=== PATIENT | male | born 1960 | race Caucasian/White ===

== ENCOUNTER → 2018-10-19 10:13 | Outpatient (CLI) | payer OTHER, SELFPAY ==
--- NOTE | 2018-10-19 10:22 | RAD_ITS ---
STUDY: X-RAY - LUMBAR SPINE REASON FOR EXAM: Male, 57 years old. Hip pain, left more than right TECHNIQUE: Five view(s) of the lumbar spine were obtained. COMPARISON: None FINDINGS: Normal lumbar lordosis. Trace levoscoliosis. There is minimal retrolisthesis of L5 on S1. There are small osteophytes scattered in the lumbar spine. Vertebral body heights are maintained in the lumbar spine. There is mild degenerative wedging in the lower thoracic spine and L1. There is mild disc space narrowing at L5-S1. There is atherosclerotic calcification of the abdominal aorta without a demonstrated aneurysm. RAD/L/S Spine Min 4 Views IMPRESSION: Mild degenerative disc changes at L5-S1. There is trace levoscoliosis. Electronically Signed: Violet Fernandez MD at 0:08 EST Tel Direct: [phone], Service support ,
--- NOTE | 2018-10-19 10:23 | RAD_ITS ---
STUDY: X-RAY - PELVIS AND BILATERAL HIPS REASON FOR EXAM: Male, 57 years old. Hip pain, left greater than right TECHNIQUE: Six views of the pelvis and hips were obtained. COMPARISON: None. FINDINGS: There is a non-specific bowel gas pattern. The soft tissues are unremarkable. The visualized iliac wings, sacroiliac joints and sacrum are unremarkable. No abnormalities are seen in the visualized superior and inferior pubic rami. Normal appearing pubic symphysis. The visualized ischial tuberosities are unremarkable. There is slight flattening of the femoral head. The right acetabulum is slightly shallow. The right hip joint is normal in appearance. The proximal left femur shows no significant abnormalities. The left acetabulum shows no significant abnormalities. The left hip joint is normal in appearance. RAD/Hips B/L min 2 views w/ Pelvis IMPRESSION: There are no acute abnormalities. No significant abnormalities are seen radiographically in the left hip. 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 Electronically Signed: Violet Fernandez MD at 0:05 EST Tel Direct: [phone], Service support ,
--- OUTSIDE RECORDS SUMMARY | 2019-01-20 23:16 | XMS RPT_ITS | Summary of Care ---
:1960 Author Organization [facility] Address [address] [place] [address] Phone Care Team Providers Name Role Phone Unavailable Primary Care Provider Unavailable Encounter Details Date Type Department Care Team Description 06/10/2017 Hospital Encounter [facility] FerreiraKenna salas, [address] [facility] [place] [address] 0[address] [facility] [phone] Social History Tobacco Use Types Packs/Day Years Used Date Never Assessed Sex Assigned at Date Recorded Not on file as of this encounter Plan of Treatment Not on fileas of this encounter Results Creatinine with eGFR (06/10/2017 9:49 AM) Component Value Ref Range Creatinine 0.9 0.6 - 1.2 mg/dL Comment: Testing performed at [email or web address], [address] [place] [id number]. eGFR >=60 ml/min/1.73sq.m Comment: eGFR is an estimated Glomerular Filtration Rate based on the value of the patient's serum creatinine. In outpatients, eGFR should be used as a helpful tool in screening for CKD. In inpatients or patients with acute renal failure, eGFR represents the GFR at the moment of the draw and should be used with caution. eGFR >=60 ml/min/1.73sq.m Specimen Performing Laboratory Blood [facility] [address] [place] [address] in this encounter
--- OUTSIDE RECORDS SUMMARY | 2019-01-20 23:17 | XMS RPT_ITS | Summary of Care ---
:1960 Author Organization [facility] Address [address] [id number] Phone Care Team Providers Name Role Phone Kenna Ferreira PA-C Primary Care Provider Maurisio Bernal MD Unavailable Reason for Referral Evaluate and Treat (Routine) Status Reason Specialty Diagnoses / Referred By Referred To Procedures Contact Contact Pending Review Orthopedic Diagnoses Bilateral hip pain Kenna Ferreira, Nate Stevens, DRAGAN Zuniga, [address] Phone: [employer] [phone] [place], [place] Fax: [phone] Reason for Visit Evaluate and Treat (Routine) Status Reason Specialty Diagnoses / Referred By Referred To Procedures Contact Contact Pending Review Orthopedic Diagnoses Bilateral hip pain Kenna Ferreira, Nate Stevens, DRAGAN Zuniga, [address] Phone: [employer] [phone] [place], [place] Fax: [phone] Encounter Details Date Type Department Care Team Description 10/20/2017 Office Visit [facility] Aiden Shelley Trochanteric bursitis of both hips (Primary Dx); [facility]opedic [facility] MD Efrain Bilateral hip pain [facility] [address] [place] [address] [place] [address] [phone] Allergies No Known Allergiesas of this encounter Medications Prescription Sig. Disp. Refills Start Date End Date Status metFORMIN (GLUCOPHAGE-XR) 08/21/2017 Active 500 MG 24 hr tablet lisinopril 07/28/2017 Active (PRINIVIL,ZESTRIL) 40 MG tablet NIASPAN EXTENDED-RELEASE 09/23/2017 Active 1,000 mg CR tablet fish oil-omega-3 fatty Take 2 g by mouth Active acids 300-1,000 mg capsule daily. predniSONE (DELTASONE) 20 10/17/2017 Active MG tablet Hospital, Clinic, or Other Ordered Dose Route Frequency Start Date End Date Status Facility Administered Medication triamcinolone acetonide 20 mg IAtc Once 10/20/2017 10/20/2017 Ended (KENALOG-40) injection 20 mg triamcinolone acetonide 20 mg IAtc Once 10/20/2017 10/20/2017 Ended (KENALOG-40) injection 20 mg as of this encounter Social History Tobacco Use Types Packs/Day Years Used Date Former Smoker 1 20 Smokeless Tobacco: Never Used Alcohol Use Drinks/Week oz/Week Comments Yes Sex Assigned at Date Recorded Not on file as of this encounter Last Filed Vital Signs Vital Sign Reading Time Taken Blood Pressure 119/82 10/20/2017 3:33 PM EST Pulse 87 10/20/2017 3:33 PM EST Temperature - - Respiratory Rate - - Oxygen Saturation - - Inhaled Oxygen Concentration - - Weight 136.1 kg (300 lb) 10/20/2017 3:33 PM EST Height 182.9 cm (6') 10/20/2017 3:33 PM EST Body Mass Index 40.69 10/20/2017 3:33 PM EST in this encounter Progress Notes Aiden Shelley MD - 10/20/2017 5:46 PM EST Akira Osorio comes in today for evaluation of his left and right hip. Jony is a 56-year-old patient who had some pain and discomfort in his left and right hip in the past. The gentleman says thathe has had no 1 specific injury. He has had a previous pelvis x-ray. He says that he has had no injections. He has been to the chiropractor for some back problems in the past, but he says really he has been having pain actually on the outside of both hips. No significant groin pain. He denies anythigh pain and, when I ask him about some numbness and tingling, he says occasional he will have some in his feet. The gentleman once again does have a history of working with a chiropractor in the past. Today, he says at times he will get an ice pick type pain on the inside of the groin, but mostlyit is on the outside. He said he actually loves his chiropractor, who always helps, but he has had no formal shots and no formal therapy. He does do anti-inflammatories on occasion. 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 ALLERGIES None. MEDICINES Metformin, Niacin, lisinopril, Lipitor, fish oil, as needed prednisone. SURGERIES He has had right shoulder surgery, right knee surgery, tonsillectomy. ILLNESSES Include high blood pressure, diabetes, high cholesterol. REVIEW OF SYSTEMS Hip pain. He is a truck farmer. He drinks socially. Does not smoke. Stopped in April of 2017. FAMILY HISTORY Positive for cancer, heart attack. Negative for stroke. X-RAYS X-rays from outpatient facility of both hips reveal preservation of the joint space; however, there does appear to be some flattening of the femoral head on the right hip, consistent with a juvenile Dfht-Xnkwb-Plclnmv disease. PHYSICAL EXAM General: He is awake, alert and oriented x3. Musculoskeletal: He ambulates without an assistive device. Bilateral lower extremities neurologically intact, 2+ pulses. Full range of motion throughout the ankles, knees, and hips. Hips have absolute full range of motion. He has exquisite tenderness on the bilateral hip greater trochanter bursae. Abdomen: Obese, soft, nontender. Back: He has some mild tenderness throughout the paraspinals and the SI joints. IMPRESSION Bilateral hip greater trochanter bursitis. PLAN Under sterile conditions, with the patient's consent, we injected 20 mg of Kenalog and 2.5 mL of 1% lidocaine without epinephrine into both the right and left hip. I offered the gentleman formal physical therapy. He does not want to do that. At this time, I do not see any reason to proceed with anyfurther investigation of the hips. I will see him on an as-needed basis. in this encounter Plan of Treatment Health Maintenance Due Date Last Done Comments COLONOSCOPY 1960 TETANUS EVERY 10 YR 1960 SEQUENTIAL INFLUENZA VACCINE (#1) 2017 HEPATITIS C SCREENING Completed 05/06/2017 as of this encounter Visit Diagnoses Diagnosis Trochanteric bursitis of both hips - Primary Bilateral hip pain Pain in joint, pelvic region and thigh Administered Medications Inactive Administered Medications - up to 3 most recent administrations Medication Order MAR Action Action Date Dose Rate Site triamcinolone acetonide (KENALOG-40) Given 10/20/2017 17:49 EST 20 mg injection 20 mg 20 mg, Intra-articular, Once, 10/20/17 at 1845, For 1 dose, [facility] 4835-9767-69 triamcinolone acetonide (KENALOG-40) injection Given 10/20/2017 17:49 EST 20 mg 20 mg 20 mg, Intra-articular, Once, 10/20/17 at 1845, For 1 dose, [facility] 3433-9865-83 in this encounter Insurance Payer Benefit Plan / Group Subscriber ID Type Phone Address [facility] [id number] Home: [facility] [place] [phone] [place] [phone] as of this encounter
--- OUTSIDE RECORDS SUMMARY | 2019-01-20 23:17 | XMS RPT_ITS | Summary of Care ---
:1960 Author Organization [facility] Address [address] [place] [address] Phone Care Team Providers Name Role Phone Kenna Ferreira PA-C Primary Care Provider Maurisio Bernal MD Unavailable Encounter Details Date Type Department Care Team Description 10/18/2017 Hospital Encounter [facility] Kenna Ferreira, [address] [facility] [place] [address] [place] [address] [phone] Social History Tobacco Use Types Packs/Day Years Used Date Never Assessed Sex Assigned at Date Recorded Not on file as of this encounter Plan of Treatment Upcoming Encounters Date Type Specialty Care Team Description 10/20/2017 Office Visit Sports Medicine Aiden Shelley MD [address] [place] [address] as of this encounter Insurance Payer Benefit Plan / Group Subscriber ID Type Phone Address [employer] [employer] PPO [id number] as of this encounter
--- OUTSIDE RECORDS SUMMARY | 2019-01-20 23:17 | XMS RPT_ITS ---
:1960 Author Organization [facility] Care Team Providers Name Role Phone MARSHAL RODRIGUEZ Attending Unavailable LEIGHA CHU Primary Care Unavailable MARSHAL RODRIGUEZ Referring Unavailable PROBLEMS PROBLEMS No Problem Records FoundPROCEDURES PROCEDURES No Procedure Records FoundRESULTS RESULTS HIPS B/L MIN 2 Observed: 10/19/2018 Status: F Source: [place] VIEWS W/ PELVIS 10:23 AM [facility] REPOSITORY [facility] Imaging Services [address] [place] [address] Hips B/L min 2 views w/ Pelvis MR#: [id number] Acct: [id number] Name: VI GRAF Rep #: [id number] : 1960 M 57 From: Violet Fernandez MD PCP: OUT OF TOWN DOCTOR Status: REG CLI Study: Hips B/L min 2 views w/ Pelvis Date of Exam: 10/19/18 Exam# [id number] Ordering Dr: Marshal Rodriguez STUDY: X-RAY - PELVIS AND BILATERAL HIPS REASON FOR EXAM: Male, 57 years old. Hip pain, left greater than right TECHNIQUE: Six views of the pelvis and hips were obtained. COMPARISON: None. FINDINGS: There is a non-specific bowel gas pattern. The soft tissues are unremarkable. The visualized iliac wings, sacroiliac joints and sacrum are unremarkable. No abnormalities are seen in the visualized superior and inferior pubic rami. Normal appearing pubic symphysis. The visualized ischial tuberosities are unremarkable. There is slight flattening of the femoral head. The right acetabulum is slightly shallow. The right hip joint is normal in appearance. The proximal left femur shows no significant abnormalities. The left acetabulum shows no significant abnormalities. The left hip joint is normal in appearance. RAD/Hips B/L min 2 views w/ Pelvis IMPRESSION: There are no acute abnormalities. No significant abnormalities are seen radiographically in the left hip. 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 Electronically Signed: Violet Fernandez MD at 0:05 EST Tel Direct: [phone], Service support , CC: MARSHAL RODRIGUEZ; OUT OF TOWN DOCTOR [employer] Developer: Signed L/S SPINE MIN 4 Observed: 10/19/2018 Status: F Source: [place] VIEWS 10:23 AM [facility] REPOSITORY [facility] Imaging Services [address] [place] [address] L/S Spine Min 4 Views MR#: [id number] Acct: [id number] Name: VI GRAF Rep #: [id number] : 1960 M 57 From: Violet Fernandez MD PCP: OUT OF TOWN DOCTOR Status: REG CLI Study: L/S Spine Min 4 Views Date of Exam: 10/19/18 Exam# [id number] Ordering Dr: Marshal Rodriguez STUDY: X-RAY - LUMBAR SPINE REASON FOR EXAM: Male, 57 years old. Hip pain, left more than right TECHNIQUE: Five view(s) of the lumbar spine were obtained. COMPARISON: None FINDINGS: Normal lumbar lordosis. Trace levoscoliosis. There is minimal retrolisthesis of L5 on S1. There are small osteophytes scattered in the lumbar spine. Vertebral body heights are maintained in the lumbar spine. There is mild degenerative wedging in the lower thoracic spine and L1. There is mild disc space narrowing at L5-S1. There is atherosclerotic calcification of the abdominal aorta without a demonstrated aneurysm. RAD/L/S Spine Min 4 Views IMPRESSION: Mild degenerative disc changes at L5-S1. There is trace levoscoliosis. Electronically Signed: Violet Fernandez MD at 0:08 EST Tel Direct: [phone], Service support , CC: MARSHAL RODRIGUEZ; OUT OF TOWN DOCTOR [employer] Developer: Signed ALLERGIES ALLERGIES No Allergies Records FoundENCOUNTERS ENCOUNTERS ADMIT/DISCHARGE ACCOUNT ADMITTING ENCOUNTER LOCATION SOURCE NUMBER CLASS 10/19/2018 [id number] Ambulatory [facility] ing:RAD Repository PAYERS PAYERS ENCOUNTER GUARANTOR PAYER SUBSCRIBER SOURCE 10/19/2018 VI Bland Primary VI Bland [facility] [id number] [place] Insurance:MEDICAL [facility]ELYD[id number] [address] Number: Repository [id number] (HP) Date:[id number] [address]YF: 10/19/2018 Secondary NOT GIVENUNK [place] Insurance:SELF PAY [facility] Number: Effective Repository Date:2018-10-19
== END ==
PROVIDERS: Referring Provider Anesthesiology Pain Medicine; Visit Provider Anesthesiology Pain Medicine
DX: M47.816 Spondylosis without myelopathy or radiculopathy, lumbar region (principal); M16.0 Bilateral primary osteoarthritis of hip
CPT/HCPCS: 72110; 73521